=== PATIENT | female | born 1990 | race Caucasian/White ===

== ENCOUNTER 2016-11-13 16:03 | Emergency (ER) | payer MEDICAID, OTHER ==
[2016-11-13 16:15] VITALS: BP 130/92; PULSE 77; RESP 18; TEMP 98; O2SAT 99
--- NOTE | 2016-11-13 16:48 | C.PDOC ---
History Of Present Illness 26 yr old female presents to the ER with complaints of worsening left lower tooth pain for the past 4 days. Patient states the temporary filling came out and was previously advised she is in need of removal but unable to afford it. Patient is pending dental clinic appointment. Denies fever, swelling to the area or neck pain. WORSENING L LOWER TOOTH PAIN X 4 DAYS. PS TEMP FILLING CAME OUT, WAS PREV ADVISED NEED REMOVAL BUT UNABLE TO AFFORD. NO SWELLING, FEVER. PENDING DENTAL CLINIC APPT EXAM NAD HEENT +L 1 MOLAR MISSING FILLING, EXPOSED TOP. NO ABSCESS. +DENTALGIA NO FACIAL SWELL [facility] SCHEDULED. Time Seen by Provider: 11/13/16 16:37 Chief Complaint (Nursing): Dental Pain History Per: Patient History/Exam Limitations: no limitations Onset/Duration Of Symptoms: Days (4) Current Symptoms Are (Timing): Still Present Past Medical History Reviewed: Historical Data, Nursing Documentation, Vital Signs Vital Signs: Last Vital Signs Temp 98.0 F 11/13/16 16:13 Pulse 77 11/13/16 16:13 Resp 18 11/13/16 16:13 BP 130/92 H 11/13/16 16:13 Pulse Ox 99 11/13/16 17:09 - [facility] Procedures DELIVERY OF PRODUCTS OF CONCEPTION, EXTERNAL APPROACH (06/24/16) MONITORING OF POC, CARDIAC RATE, PHONE ENGINEER APPROACH (06/24/16) REPAIR PERINEUM SKIN, EXTERNAL APPROACH (06/12/15) Family History: States: No Known Family Hx - Social History Hx Tobacco Use: Yes Hx Alcohol Use: No Hx Substance Use: No - Immunization History Hx Tetanus Toxoid Vaccination: Yes Hx Influenza Vaccination: No Hx Pneumococcal Vaccination: No Review Of Systems Except As Marked, All Systems Reviewed And Found Negative. Constitutional: Negative for: Fever ENT: Positive for: Other ((+) Left lower tooth pain.) Musculoskeletal: Negative for: Neck Pain Physical Exam - Physical Exam Appears: Non-toxic, No Acute Distress, Other (No facial swelling) Skin: Warm, Dry, No Rash Head: Atraumatic, Normacephalic Teeth: Other ((+) Left, 1 molar missing filling, exposed top. Dentalgia.) Gingiva: No Abscess, Other Neurological/Psych: Oriented x3, Normal Speech, Normal Motor, Normal Sensation ED Course And Treatment O2 Sat by Pulse Oximetry: 99 (RA) Pulse Ox Interpretation: Normal Medical Decision Making Medical Decision Making: PLAN: * Tylenol/Codeine PO * Tylneol PO * Motrin PO Disposition Counseled Patient/Family Regarding: Diagnosis, Need For Followup, Rx Given - Disposition Referrals: YOUR,DENTIST [Other] Disposition: HOME/ ROUTINE Disposition Time: 16:47 Condition: IMPROVED Prescriptions: Acetaminophen [Tylenol 325mg tab] 650 mg PO Q6 #30 tab Acetaminophen/Cod NO 4 [Tylenol/Cod 300 mg-60 mg] 1 tab PO Q4 PRN #20 tab PRN Reason: Pain, Moderate (4-7) Ibuprofen [Motrin] 600 mg PO Q6 #30 tab Penicillin VK [Penicillin VK Tab] 500 mg PO TID #35 tab Instructions: Toothache (ED) Forms: [employer] ([employer]) - Clinical Impression Clinical Impression: Dentalgia - Scribe Statement The provider has reviewed the documentation as recorded by the Vivibdi Salgado Provider Attestation: All medical record entries made by the Scribe were at my direction and personally dictated by me. I have reviewed the chart and agree that the record accurately reflects my personal performance of the history, physical exam, medical decision making, and the department course for this patient. I have also personally directed, reviewed, and agree with the discharge instructions and disposition.
[2016-11-13] MEDS ORDERED: Acetaminophen-Codeine 300/30 mg Tab PO STA (16:49)
== END 2016-11-13 16:59 | disposition home or self-care (01) ==
LOC: C.ER 16:03
DX: K08.89 Other specified disorders of teeth and supporting structures (principal)

== ENCOUNTER 2017-07-17 16:14 | Emergency (ER) | payer MEDICAID, OTHER ==
[2017-07-17 16:25] VITALS: BP 123/84; PULSE 82; RESP 16; TEMP 98; O2SAT 98
[2017-07-17 16:51] LABS: BASO % 0.4 % (0.0-2.0); EOS # 0.1 K/uL (0.0-0.7); EOS % 1.6 % (0.0-4.0); HEMOGLOBIN 13.3 g/dL (11.0-16.0); LYMPH # 2.5 K/uL (1.0-4.3); LYMPH % 33.7 % (20.0-40.0); MEAN CELL VOLUME 86.4 fL (81.0-99.0); MEAN CORPUSCULAR HEMOGLOBIN 29.8 pg (27.0-31.0); MEAN CORPUSCULAR HGB CONC 34.5 g/dL (33.0-37.0); MEAN PLATELET VOLUME 7.8 fL (7.2-11.7); MONO # 0.6 K/uL (0.0-0.8); MONO % 7.7 % (0.0-10.0); NEUT # 4.2 K/uL (1.8-7.0); NEUT % 56.6 % (50.0-75.0); NRBC % 0.1 % (0.0-2.0); RBC 4.45 Mil/uL (3.80-5.20); RED CELL DISTRIBUTION WIDTH 14.2 % (11.5-14.5); WHITE BLOOD COUNT 7.5 K/uL (4.8-10.8)
[2017-07-17 17:02] LABS: BLOOD UREA NITROGEN 13 mg/dL (7-17); CALCIUM 8.7 mg/dl (8.6-10.4); GFR AFRICAN-AMERICAN > 60; GFR NON-AFRICAN AMERICAN > 60
--- NOTE | 2017-07-17 17:07 | C.PDOC ---
History Of Present Illness The patient is a 26yo female, with no known past medical history, presents to ED with complaints of anterior chest pain since 8pm last night. She reports the pain has been worsening and is worse with deep breathing. Additionally, patient states she had abdominal pain 4 days ago and pelvic pain 3 days ago, which resolved on their own. She reports taking "gas pills" with no relief of her symptoms. She denies any associated fever, chills, cough, shortness of breath. She also states she has never had such symptoms in the past. She offers no other medical complaints. Of note, patient is on oral contraceptive. PMD: None provided Time Seen by Provider: 07/17/17 16:32 Chief Complaint (Nursing): Cough, Cold, Congestion History Per: Patient History/Exam Limitations: no limitations Onset/Duration Of Symptoms: Days (1) Current Symptoms Are (Timing): Still Present Quality: "Pain" Additional History Per: Patient Past Medical History Reviewed: Historical Data, Nursing Documentation, Vital Signs Vital Signs: Last Vital Signs Temp 98 F 07/17/17 16:23 Pulse 82 07/17/17 16:23 Resp 16 07/17/17 16:23 BP 123/84 07/17/17 16:23 Pulse Ox 98 07/17/17 17:19 - Medical History PMH: No Chronic Diseases Surgical History: No Surg Hx - [facility] Procedures DELIVERY OF PRODUCTS OF CONCEPTION, EXTERNAL APPROACH (06/24/16) MONITORING OF POC, CARDIAC RATE, ORACLE DATABASE ADMINISTRATOR APPROACH (06/24/16) REPAIR PERINEUM SKIN, EXTERNAL APPROACH (06/12/15) Family History: States: No Known Family Hx, Unknown Family Hx - Social History Hx Tobacco Use: Yes Hx Alcohol Use: No Hx Substance Use: No - Immunization History Hx Tetanus Toxoid Vaccination: Yes Hx Influenza Vaccination: No Hx Pneumococcal Vaccination: No Review Of Systems Except As Marked, All Systems Reviewed And Found Negative. Constitutional: Negative for: Fever, Chills Cardiovascular: Positive for: Chest Pain Respiratory: Negative for: Cough, Shortness of Breath Physical Exam - Physical Exam Appears: Non-toxic, No Acute Distress Skin: Normal Color, Warm, Dry Head: Atraumatic, Normacephalic Eye(s): bilateral: Normal Inspection, PERRL, EOMI Neck: Normal ROM, Supple Chest: Symmetrical, Tenderness (anterior left chest wall tenderness) Cardiovascular: Rhythm Regular Respiratory: Normal Breath Sounds, No Wheezing Neurological/Psych: Oriented x3 ED Course And Treatment - Laboratory Results Result Diagrams: 07/17/17 16:48 07/17/17 16:48 ECG: Interpreted By Me, Viewed By Me ECG Rhythm: Sinus Rhythm, Nonspecific Changes (flat T waves in lateral leads) Rate From EC O2 Sat by Pulse Oximetry: 98 (RA) Pulse Ox Interpretation: Normal Medical Decision Making Medical Decision Making: Impression: Chest wall strain, musculoskeletal pain Plan: -- Labs -- EKG -- Upreg Progress: 1704 UPreg is negative. 1710 DDimer levels reviewed and is <200 Labs reviewed and all within normal limits. Disposition Counseled Patient/Family Regarding: Studies Performed, Diagnosis, Need For Followup, Rx Given - Disposition Referrals: [facility] [Outside] Disposition: HOME/ ROUTINE Disposition Time: 17:34 Additional Instructions: Pawel, thank you for letting us take care of you today. Return to the ER if your symptoms worsen, or if any problems. Take the medication listed below as prescribed. Follow up at our [facility]. Call the phone number listed below to make an appointment. Prescriptions: Ibuprofen [Motrin] 1 tab PO Q8 PRN #30 tab PRN Reason: Pain, Moderate (4-7) Instructions: Costochondritis (DC) Forms: General Discharge Instructions Print Language: CITIZEN OF [place] - Clinical Impression Clinical Impression: Costochondritis - Scribe Statement The provider has reviewed the documentation as recorded by the Scribe (Melodie Alexander) Provider Attestation: All medical record entries made by the Scribe were at my direction and personally dictated by me. I have reviewed the chart and agree that the record accurately reflects my personal performance of the history, physical exam, medical decision making, and the department course for this patient. I have also personally directed, reviewed, and agree with the discharge instructions and disposition.
[2017-07-17 17:08] LABS: PROTHROMBIN TIME 11.1 SECONDS (9.7-12.2)
[2017-07-17 17:09] LABS: D DIMER < 200.0 ng/mlDDU (0-243)
--- NOTE | 2017-07-17 17:46 | RAD ---
HISTORY: Midline left side chest pain since yesterday COMPARISON: No prior. TECHNIQUE: Chest PA and lateral FINDINGS: LUNGS: No active pulmonary disease. PLEURA: No significant pleural effusion identified. No pneumothorax apparent. CARDIOVASCULAR: Normal. OSSEOUS STRUCTURES: No significant abnormalities. VISUALIZED UPPER ABDOMEN: Normal. OTHER FINDINGS: None. IMPRESSION: No active disease. Concordant results with the preliminary interpretation rendered by the emergency department physician procedure.
== END 2017-07-17 17:47 | disposition home or self-care (01) ==
LOC: C.ER 16:14
DX: M94.0 Chondrocostal junction syndrome [Tietze] (principal)
CPT/HCPCS: 71046; 80048; 85025; 85378; 85610; 96374; 99284; J1885